=== PATIENT | female | born 1955 | race Caucasian/White ===

== ENCOUNTER 2017-11-25 17:05 | Inpatient (IN) | payer OTHER ==
[~2017-11-25] VITALS: Ht 160 cm; Wt 61.0 kg
[~2017-11-25 17:05] MED LIST: 1-ME1LIQ PO; ADVAI250I PO; DULO20 PO; DUONI NEB; GUAI600 PO; LACT PO; LEVA750T PO; LORTA5 PO; PRED5PAK PO; PROT40TA PO; ROBIACUDC PO; SPIRCAP INH; TRAZ150T2 PO
[2017-11-25 17:30] VITALS: BP 105/58; PULSE 92; RESP 22; TEMP 98.9; O2SAT 89
--- NOTE | 2017-11-25 18:30 | RADRPT ---
EXAM DATE/TIME: 11/25/2017 18:13 [place] COMPARISON: CHEST PA & LAT, February 17, 2016, 8:06. INDICATIONS : Chest pain and short of breath. MEDICAL HISTORY : Hypertension. Chronic obstructive pulmonary disease. SURGICAL HISTORY : None. ENCOUNTER: Initial ACUITY: 1 day PAIN SCORE: 8/10 LOCATION: Bilateral chest FINDINGS: There is consolidation in the left lower lung causing loss of delineation of the left hemidiaphragm a nd with air bronchograms. Chronic interstitial prominence in the right mid and lower lung is less pr ominent than on prior chest x-ray. The upper lungs are clear. The heart is normal in size. Calcifi ed left breast implant. CONCLUSION: Left lower lobe consolidation. Robby Moreno MD on November 25, 2017 at 18:27 Board Certified Radiologist. This report was verified electronically.
[2017-11-25 18:34] VITALS: BP 126/56; PULSE 88; RESP 18; TEMP 98.7; O2SAT 95
[2017-11-25] MEDS ORDERED: ALBU1TAB2 PO (18:39)
[2017-11-25] MEDS ORDERED: TRAZ1TAB14 PO (18:39)
[2017-11-25] MEDS ORDERED: DULO20 PO (18:39)
[2017-11-25] MEDS ORDERED: SPIRCAP INH (18:39)
--- NOTE | 2017-11-25 18:50 | PD ---
HPI Chief Complaint: Respiratory Distress Time Seen by Provider: 18:48 Travel History International Travel<30 days: No Contact w/Intl Traveler<30days: No Traveled to known affect area: No History of Present Illness HPI Patient is a 62-year-old female presents emergency department for evaluation of "I think I have a pneumonia" patient was here February 15, 2016 for sepsis and her right-sided pneumonia. She states feels very similar to that episode. She has been coughing congestion with swallowing her own phlegm for the past 2-3 days. She endorses some mild shortness of breath. She has a history of COPD and has a lung doctor in [place] where she lives the summer months. She denies any chest pain denies any fevers but states just feeling run down. States symptoms for the past 2-3 days, gradually worsening, context as above, associated signs and symptoms as above. PFSH Past Medical History Arthritis: No Asthma: No Anxiety: Yes Heart Rhythm Problems: No Cancer: No Cardiovascular Problems: Yes High Cholesterol: No Chest Pain: No Congestive Heart Failure: No COPD: Yes Endocrine: No Fibromyalgia: Yes Gastrointestinal Disorders: Yes GERD: Yes Genitourinary: No Hiatal Hernia: No Hypertension: Yes Immune Disorder: No Musculoskeletal: Yes Neurologic: No Psychiatric: No Reproductive: No Respiratory: Yes (COPD) Pneumonia: Yes Sleep Apnea: No Ulcer: No Past Surgical History Abdominal Surgery: No Cardiac Surgery: No Ear Surgery: No Endocrine Surgery: No Eye Surgery: No Genitourinary Surgery: No Gynecologic Surgery: Yes (hysterectomy) Hysterectomy: Yes Oral Surgery: Yes (tonsils) Thoracic Surgery: No Tonsillectomy: Yes Other Surgery: Yes (hysterectomy, tonsils, carp jacoby) Social History Alcohol Use: Yes (occ) Tobacco Use: Yes (occ) Substance Use: No Allergies-Medications (Allergen,Severity, Reaction): Coded Allergies: No Known Allergies (Unverified Adverse Reaction, Unknown, 11/25/17) Reported Meds & Prescriptions Reported Meds & Active Scripts Active Reported Albuterol (Albuterol Sulfate) 4 Mg Tab 4 Mg PO QID PRN Spiriva Handihaler (Tiotropium Inh) 18 Mcg Cap 18 Mcg INH DAILY 1 capsule = 18 mcg Trazodone (Trazodone HCl) 150 Mg Tablet 75 Mg PO HS Cymbalta DR (Duloxetine HCl) 20 Mg Capdr 20 Mg PO DAILY Review of Systems Except as stated in HPI: all other systems reviewed are Neg Physical Exam Narrative GENERAL: Well-developed well-nourished no obvious distress SKIN: Focused skin assessment warm/dry. HEAD: Atraumatic. Normocephalic. EYES: Pupils equal and round. No scleral icterus. No injection or drainage. ENT: No nasal bleeding or discharge. Mucous membranes pink and moist. NECK: Trachea midline. No JVD. CARDIOVASCULAR: Regular rate and rhythm. No murmur appreciated. RESPIRATORY: No accessory muscle use. Mildly tachypneic. Clear to auscultation. Breath sounds equal bilaterally. GASTROINTESTINAL: Abdomen soft, non-tender, nondistended. Hepatic and splenic margins not palpable. MUSCULOSKELETAL: No obvious deformities. No clubbing. No cyanosis. No edema. NEUROLOGICAL: Awake and alert. No obvious cranial nerve deficits. Motor grossly within normal limits. Normal speech. PSYCHIATRIC: Appropriate mood and affect; insight and judgment normal. Data Data Last Documented VS Vital Signs Date Time Temp Pulse Resp B/P (MAP) Pulse Ox O2 Delivery O2 Flow Rate FiO2 11/25/17 19:00 88 16 110/64 (79) 94 Nasal Cannula 2.00 11/25/17 18:34 98.7 Orders Orders Complete Blood Count With Diff (11/25/17 17:33) Comprehensive Metabolic Panel (11/25/17 17:33) B-Type Natriuretic Peptide (11/25/17 17:33) Act Partial Throm Time (Ptt) (11/25/17 17:33) Prothrombin Time / Inr (Pt) (11/25/17 17:33) Magnesium (Mg) (11/25/17 17:33) Ckmb (Isoenzyme) Profile (11/25/17 17:33) Troponin I (11/25/17 17:33) Electrocardiogram (11/25/17 17:33) Chest, Pa & Lat (11/25/17 17:33) Blood Culture (11/25/17 18:48) Lactic Acid (11/25/17 18:48) Ceftriaxone Inj (Rocephin Inj) (11/25/17 19:00) Azithromycin Inj (Zithromax Inj) (11/25/17 19:00) Albuterol-Ipratropium Neb (Duoneb Neb) (11/25/17 19:30) Labs Laboratory Tests Test 11/25/17 19:00 White Blood Count 15.7 TH/MM3 Red Blood Count 4.41 MIL/MM3 Hemoglobin 14.2 GM/DL Hematocrit 40.1 % Mean Corpuscular Volume 91.0 FL Mean Corpuscular Hemoglobin 32.2 PG Mean Corpuscular Hemoglobin Concent 35.3 % Red Cell Distribution Width 13.4 % Platelet Count 257 TH/MM3 Mean Platelet Volume 8.7 FL Neutrophils (%) (Auto) 91.7 % Lymphocytes (%) (Auto) 5.4 % Monocytes (%) (Auto) 2.8 % Eosinophils (%) (Auto) 0.0 % Basophils (%) (Auto) 0.1 % Neutrophils # (Auto) 14.4 TH/MM3 Lymphocytes # (Auto) 0.9 TH/MM3 Monocytes # (Auto) 0.4 TH/MM3 Eosinophils # (Auto) 0.0 TH/MM3 Basophils # (Auto) 0.0 TH/MM3 CBC Comment DIFF FINAL Differential Comment MDM Medical Decision Making Medical Screen Exam Complete: Yes Emergency Medical Condition: Yes Differential Diagnosis Pneumonia, Sirs, sepsis, influenza, hypoxic respiratory failure. Narrative Course Patient room to the emergency department, she was found to have a small pneumonia in the left lower lobe. Waiting for blood work the patient was signed out to Dr. Enriquez at 1900 to follow-up labs and disposition the patient properly, she was ordered dose of Rocephin and azithromycin Phi Marley MD Nov 25, 2017 18:50
[2017-11-25 19:00] VITALS: BP 110/64; PULSE 88; RESP 16; O2SAT 94
[2017-11-25] MEDS ORDERED: AZITHROMYCIN INJ 500 MG in SODIUM CHLOR 0.9% 250 ML INJ 250 ML IV ONE (19:00)
[2017-11-25] MEDS ORDERED: cefTRIAXone INJ 1,000 MG in SODIUM CHLORIDE 0.9% INJ 100 ML IV ONE (19:00)
[2017-11-25 19:29] LABS: AUTOMATED NEUTROPHIL # 14.4 TH/MM3 (1.8-7.7); BASOPHIL % 0.1 % (0.0-2.0); HEMATOCRIT 40.1 % (35.0-46.0); HEMOGLOBIN 14.2 GM/DL (11.6-15.3); LYMPH % 5.4 % (9.0-44.0); LYMPHOCYTE # 0.9 TH/MM3 (1.0-4.8); MEAN CORPUSCULAR HEMOGLOBIN 32.2 PG (27.0-34.0); MEAN CORPUSCULAR HGB CONC 35.3 % (32.0-36.0); MEAN PLATELET VOLUME 8.7 FL (7.0-11.0); MONO % 2.8 % (0.0-8.0); MONOCYTE # 0.4 TH/MM3 (0-0.9); NEUT % 91.7 % (16.0-70.0); PLATELET COUNT 257 TH/MM3 (150-450); RED BLOOD COUNT 4.41 MIL/MM3 (4.00-5.30); RED CELL DISTRIBUTION WIDTH 13.4 % (11.6-17.2); WHITE BLOOD COUNT 15.7 TH/MM3 (4.0-11.0)
[2017-11-25] MEDS ORDERED: RESP: ALBUTEROL 2.5 MG/IPRATROPIUM 0.5 MG NEB (SCH) NEB ONE ×2 (19:30→20:45)
[2017-11-25 19:41] LABS: PROTHROMBIN TIME - PATIENT 10.2 SEC (9.8-11.6)
--- NOTE | 2017-11-25 19:56 | PD ---
Physical Exam Date Seen by Provider: Nov 25, 2017 Time Seen by Provider: 19:54 Narrative Accepted in transfer of care from Dr. Marley Data Data Last Documented VS Vital Signs Date Time Temp Pulse Resp B/P (MAP) Pulse Ox O2 Delivery O2 Flow Rate FiO2 11/25/17 19:57 93 Nasal Cannula 2.00 11/25/17 19:00 88 16 110/64 (79) 11/25/17 18:34 98.7 Orders Orders Complete Blood Count With Diff (11/25/17 17:33) Comprehensive Metabolic Panel (11/25/17 17:33) B-Type Natriuretic Peptide (11/25/17 17:33) Act Partial Throm Time (Ptt) (11/25/17 17:33) Prothrombin Time / Inr (Pt) (11/25/17 17:33) Magnesium (Mg) (11/25/17 17:33) Ckmb (Isoenzyme) Profile (11/25/17 17:33) Troponin I (11/25/17 17:33) Electrocardiogram (11/25/17 17:33) Chest, Pa & Lat (11/25/17 17:33) Blood Culture (11/25/17 18:48) Lactic Acid (11/25/17 18:48) Ceftriaxone Inj (Rocephin Inj) (11/25/17 19:00) Azithromycin Inj (Zithromax Inj) (11/25/17 19:00) Albuterol-Ipratropium Neb (Duoneb Neb) (11/25/17 19:30) CKMB (11/25/17 19:00) CKMB% (11/25/17 19:00) Ketorolac Inj (Toradol Inj) (11/25/17 20:45) Albuterol-Ipratropium Neb (Duoneb Neb) (11/25/17 20:45) Sodium Chlorid 0.9% 500 Ml Inj (Ns 500 M (11/25/17 20:45) Admit Order (Ed Use Only) (11/25/17 ) Body Mechanic / Telemetry [id number].[id number] (11/25/17 20:54) Diet Heart Healthy (11/26/17 Breakfast) Activity Bed Rest (11/25/17 20:54) Notify Dr: Other (11/25/17 20:54) Labs Laboratory Tests Test 11/25/17 19:00 White Blood Count 15.7 TH/MM3 Red Blood Count 4.41 MIL/MM3 Hemoglobin 14.2 GM/DL Hematocrit 40.1 % Mean Corpuscular Volume 91.0 FL Mean Corpuscular Hemoglobin 32.2 PG Mean Corpuscular Hemoglobin Concent 35.3 % Red Cell Distribution Width 13.4 % Platelet Count 257 TH/MM3 Mean Platelet Volume 8.7 FL Neutrophils (%) (Auto) 91.7 % Lymphocytes (%) (Auto) 5.4 % Monocytes (%) (Auto) 2.8 % Eosinophils (%) (Auto) 0.0 % Basophils (%) (Auto) 0.1 % Neutrophils # (Auto) 14.4 TH/MM3 Lymphocytes # (Auto) 0.9 TH/MM3 Monocytes # (Auto) 0.4 TH/MM3 Eosinophils # (Auto) 0.0 TH/MM3 Basophils # (Auto) 0.0 TH/MM3 CBC Comment DIFF FINAL Differential Comment Prothrombin Time 10.2 SEC Prothromb Time International Ratio 1.0 RATIO Activated Partial Thromboplast Time 29.3 SEC Blood Urea Nitrogen 26 MG/DL Creatinine 0.94 MG/DL Random Glucose 85 MG/DL Total Protein 6.3 GM/DL Albumin 2.8 GM/DL Calcium Level 8.2 MG/DL Magnesium Level 1.4 MG/DL Alkaline Phosphatase 66 U/L Aspartate Amino Transf (AST/SGOT) 27 U/L Alanine Aminotransferase (ALT/SGPT) 21 U/L Total Bilirubin 0.7 MG/DL Sodium Level 138 MEQ/L Potassium Level 4.2 MEQ/L Chloride Level 105 MEQ/L Carbon Dioxide Level 24.1 MEQ/L Anion Gap 9 MEQ/L Estimat Glomerular Filtration Rate 60 ML/MIN Lactic Acid Level 1.3 mmol/L Total Creatine Kinase 229 U/L Creatine Kinase MB 7.1 NG/ML Creatine Kinase MB % 3.1 % Troponin I LESS THAN 0.02 NG/ML B-Type Natriuretic Peptide 122 PG/ML [facility] Medical Record Reviewed: Yes Supervised Visit with ALICIA: No Interpretation(s) lactic acid: 1.3 Last Impressions Chest X-Ray 11/25/17 2062 Signed Impressions: Service Date/Time: Saturday, November 25, 2017 18:13 - CONCLUSION: Left lower lobe consolidation. Robby Moreno MD Vital Signs Date Time Temp Pulse Resp B/P (MAP) Pulse Ox O2 Delivery O2 Flow Rate FiO2 11/25/17 19:00 88 16 110/64 (79) 94 Nasal Cannula 2.00 11/25/17 18:34 98.7 88 18 126/56 (79) 95 Nasal Cannula 2.00 11/25/17 17:30 98.9 92 22 105/58 (74) 89 Differential Diagnosis Accepted in transfer of care from Dr. Marley; please refer to his dictation Narrative Course Accepted in transfer of care from Dr. Marley; follow up labs --admit for pneumonia , hypoxemia; r/o sepsis Ambulatory to bathroom very symptomatic return to exam room O2 saturations 83% on room air placed on supplemental oxygen at rest with supplemental oxygen O2 saturations increased to 94%. Patient meets sepsis based on heart rate white cell count and source of infection. Case discussed with on-call medicine physician for admission Patient given additional DuoNeb updraft and fluid bolus 500 cc normal saline Sepsis Criteria SIRS Criteria (2 or more): Heart rate over 90, WBC > 85766, < 4000 or > 10% bands Sepsis Criteria (SIRS+source): Infect source susp/known (pneumonia) Physician Communication Physician Communication [facility] --admit Diagnosis Primary Impression: Community acquired pneumonia Additional Impressions: COPD exacerbation Sepsis Admitting Information Admitting Physician Requests: Admit Elizabeth Enriquez MD Nov 25, 2017 19:56
[2017-11-25 19:57] VITALS: O2SAT 93
[2017-11-25 20:13] LABS: ALBUMIN 2.8 GM/DL (3.4-5.0); ALT (GPT) 21 U/L (10-53); AST (GOT) 27 U/L (15-37); BICARBONATE 24.1 MEQ/L (21.0-32.0); BLOOD UREA NITROGEN 26 MG/DL (7-18); CALCIUM 8.2 MG/DL (8.5-10.1); CHLORIDE 105 MEQ/L (98-107); CREATININE 0.94 MG/DL (0.50-1.00); GLOMERULAR FILTRATION RATE 60 ML/MIN (>89); GLUCOSE,RANDOM 85 MG/DL (74-106); MAGNESIUM 1.4 MG/DL (1.5-2.5); SODIUM (NA) 138 MEQ/L (136-145)
[2017-11-25 20:17] LABS: ALKALINE PHOSPHATASE 66 U/L (45-117); TOTAL BILIRUBIN ADULT 0.7 MG/DL (0.2-1.0); TOTAL PROTEIN 6.3 GM/DL (6.4-8.2); TROPONIN I LESS THAN 0.02 NG/ML (0.02-0.05)
[2017-11-25] MEDS ORDERED: SODIUM CHLORID 0.9% 500 ML INJ 500 ML IV ONE ×2 (20:45→21:00)
[2017-11-25] MEDS ORDERED: KETOROLAC TROMETHAMINE 30 MG/ML (IVP) VIAL IV PUSH ONE (20:45)
[2017-11-25 22:30] VITALS: BP 110/64; PULSE 84; RESP 18; O2SAT 95
[2017-11-25 23:59] VITALS: BP 122/79; PULSE 84; RESP 18; TEMP 97.7; O2SAT 91
[2017-11-26] VITALS (13 sets, daily range): BP systolic 102–161; BP diastolic 55–70; PULSE 80–96; RESP 17–20; TEMP 97.2–98.7; O2SAT 92–96
[2017-11-26] MEDS ORDERED: SODIUM CHLORIDE 0.9% FLUSH 10 ML FLUSH IV FLUSH PRN
[2017-11-26] MEDS ORDERED: RESP: ALBUTEROL 2.5 MG/IPRATROPIUM 0.5 MG NEB (PRN) INH
[2017-11-26] MEDS ORDERED: RESP: ALBUTEROL 2.5 MG/IPRATROPIUM 0.5 MG NEB (PRN) NEB
[2017-11-26] MEDS ORDERED: MAGNESIUM SULFATE 1 GM PREMIX 100 ML IV ONE
[2017-11-26] MEDS: SODIUM CHLOR 0.9% 1000 ML INJ 1,000 ML IV SCH ×3 (00:43→21:49)
[2017-11-26] MEDS: traZODone HCL 50 MG TAB PO SCH ×2 (00:44→21:48)
[2017-11-26] MEDS: ENOXAPARIN SODIUM 40 MG/0.4 ML SYRINGE SQ SCH (00:44)
[2017-11-26] MEDS: guaiFENesin/DEXTROMETHORPHAN 200 MG/20 MG/10 ML CUP PO PRN ×3 (00:53→21:48)
[2017-11-26] MEDS ORDERED: ENALAPRILAT 2.5 MG/2 ML VIAL IV PUSH PRN (01:00)
[2017-11-26] MEDS: ACETAMINOPHEN 325 MG TAB PO PRN ×2 (01:00→08:38)
--- NOTE | 2017-11-26 01:05 | HHI.HP ---
[facility]Staff Admission Diagnosis pneumonia; copd; sepsis Diagnoses: Travel History International Travel<30 Days: No Contact w/Intl Traveler <30 Da: No Traveled to Known Affected Are: No History of Present Illness CC 2-year-old female with a past medical history significant for COPD on 2 L nasal cannula at night, fibromyalgia, chronic back pain and hypertension presents to the emergency department evaluation of shortness of breath. The patient reports she's had a nonproductive cough 1 week. She endorses subjective fever/chills. She says her shortness of breath acutely worsened last night. She states that she has chest pain which is worse with inspiration. The patient denies any abdominal pain. No nausea/vomiting/ diarrhea. No lateralizing signs/symptoms. Review of Systems Except as stated in HPI: all other systems reviewed are Neg Past Family Social History Past Medical History COPD Fibromyalgia Chronic back pain Hypertension Past Surgical History Tonsillectomy Right carpal tunnel release Hysterectomy Reported Medications Reported Meds & Active Scripts Active Reported Albuterol (Albuterol Sulfate) 4 Mg Tab 4 Mg PO QID PRN Spiriva Handihaler (Tiotropium Inh) 18 Mcg Cap 18 Mcg INH DAILY 1 capsule = 18 mcg Trazodone (Trazodone HCl) 150 Mg Tablet 75 Mg PO HS Cymbalta DR (Duloxetine HCl) 20 Mg Capdr 20 Mg PO DAILY Allergies: Coded Allergies: No Known Allergies (Unverified Adverse Reaction, Unknown, 11/25/17) Family History Negative for CAD/DM Social History Smokes approximately 1-2 cigarettes daily. Rare alcohol. Denies illicit drugs. Physical Exam Vital Signs Vital Signs Date Time Temp Pulse Resp B/P (MAP) Pulse Ox O2 Delivery O2 Flow Rate FiO2 11/26/17 00:00 Nasal Cannula 4.00 11/25/17 23:59 97.7 84 18 122/79 (93) 91 11/25/17 23:53 11/25/17 22:30 84 18 110/64 (79) 95 Nasal Cannula 2.00 11/25/17 19:57 93 Nasal Cannula 2.00 11/25/17 19:00 88 16 110/64 (79) 94 Nasal Cannula 2.00 11/25/17 18:34 98.7 88 18 126/56 (79) 95 Nasal Cannula 2.00 11/25/17 17:30 98.9 92 22 105/58 (74) 89 Physical Exam GENERAL: female lying in bed SKIN: No rashes, ecchymoses or lesions. Cool and dry. HEAD: Atraumatic. Normocephalic. No temporal or scalp tenderness. EYES: Pupils equal round and reactive. Extraocular motions intact. No scleral icterus. No injection or drainage. ENT: Nose without bleeding, purulent drainage or septal hematoma. Throat without erythema, tonsillar hypertrophy or exudate. Uvula midline. Airway patent. NECK: Trachea midline. No JVD or lymphadenopathy. Supple, nontender, no meningeal signs. CARDIOVASCULAR: Regular rate and rhythm without murmurs, gallops, or rubs. RESPIRATORY: Decreased air movement. No wheezes/rales/rhonchi. GASTROINTESTINAL: Abdomen soft, non-tender, nondistended. No hepato-splenomegaly , or palpable masses. No guarding. MUSCULOSKELETAL: Extremities without clubbing, cyanosis, or edema. No joint tenderness, effusion, or edema noted. No calf tenderness. NEUROLOGICAL: Awake and alert. Cranial nerves II through XII intact. Motor and sensory grossly within normal limits. Normal speech. Laboratory Laboratory Tests Test 11/25/17 19:00 White Blood Count 15.7 Red Blood Count 4.41 Hemoglobin 14.2 Hematocrit 40.1 Mean Corpuscular Volume 91.0 Mean Corpuscular Hemoglobin 32.2 Mean Corpuscular Hemoglobin Concent 35.3 Red Cell Distribution Width 13.4 Platelet Count 257 Mean Platelet Volume 8.7 Neutrophils (%) (Auto) 91.7 Lymphocytes (%) (Auto) 5.4 Monocytes (%) (Auto) 2.8 Eosinophils (%) (Auto) 0.0 Basophils (%) (Auto) 0.1 Neutrophils # (Auto) 14.4 Lymphocytes # (Auto) 0.9 Monocytes # (Auto) 0.4 Eosinophils # (Auto) 0.0 Basophils # (Auto) 0.0 CBC Comment DIFF FINAL Differential Comment Prothrombin Time 10.2 Prothromb Time International Ratio 1.0 Activated Partial Thromboplast Time 29.3 Blood Urea Nitrogen 26 Creatinine 0.94 Random Glucose 85 Total Protein 6.3 Albumin 2.8 Calcium Level 8.2 Magnesium Level 1.4 Alkaline Phosphatase 66 Aspartate Amino Transf (AST/SGOT) 27 Alanine Aminotransferase (ALT/SGPT) 21 Total Bilirubin 0.7 Sodium Level 138 Potassium Level 4.2 Chloride Level 105 Carbon Dioxide Level 24.1 Anion Gap 9 Estimat Glomerular Filtration Rate 60 Lactic Acid Level 1.3 Total Creatine Kinase 229 Creatine Kinase MB 7.1 Creatine Kinase MB % 3.1 Troponin I LESS THAN 0.02 B-Type Natriuretic Peptide 122 Date/Time Source Procedure Growth Status 11/25/17 19:00 Blood Peripheral Aerobic Blood Culture Pending Received 11/25/17 19:00 Blood Peripheral Anaerobic Blood Culture Pending Received Result Diagram: 11/25/17 19011/25/17 190 Caprinnancy VTE Risk Assessment Horacio VTE Risk Assessment: Mod/High Risk (score >= 2) Kodyrini Risk Assessment Model Point Value = 1 Point Value = 2 Point Value = 3 Point Value = 5 Age 41-60 Minor surgery BMI > 25 kg/m2 Swollen legs Varicose veins or History of unexplained or recurrent spontaneous Oral contraceptives or hormone replacement Sepsis (< 1 month) Serious lung disease, including pneumonia (< 1 month) Abnormal pulmonary function Acute myocardial infarction Congestive heart failure (< 1 month) History of inflammatory bowel disease Medical patient at bed rest Age 61-74 Arthroscopic surgery Major open surgery (> 45 min) Laparoscopic surgery (> 45 min) Malignancy Confined to bed (> 72 hours) Immobilizing plaster cast Central venous access Age >= 75 History of VTE Family history of VTE Factor V Leiden Prothrombin [id number] Lupus anticoagulant Anticardiolipin antibodies Elevated serum homocysteine Heparin-induced thrombocytopenia Other congenital or acquired thrombophilia Stroke (< 1 month) Elective arthroplasty Hip, pelvis, or leg fracture Acute spinal cord injury (< 1 month) Prophylaxis Regimen Total Risk Factor Score Risk Level Prophylaxis Regimen 0-1 Low Early ambulation 2 Moderate Order ONE of the following: *Sequential Compression Device (SCD) *Heparin 5000 units SQ BID 3-4 Higher Order ONE of the following medications: *Heparin 5000 units SQ TID *Enoxaparin/Lovenox 40 mg SQ daily (WT < 150 kg, CrCl > 30 mL/min) *Enoxaparin/Lovenox 30 mg SQ daily (WT < 150 kg, CrCl > 10-29 mL/min) *Enoxaparin/Lovenox 30 mg SQ BID (WT < 150 kg, CrCl > 30 mL/min) AND/OR *Sequential Compression Device (SCD) 5 or more Highest Order ONE of the following medications: *Heparin 5000 units SQ TID (Preferred with Epidurals) *Enoxaparin/Lovenox 40 mg SQ daily (WT < 150 kg, CrCl > 30 mL/min) *Enoxaparin/Lovenox 30 mg SQ daily (WT < 150 kg, CrCl > 10-29 mL/min) *Enoxaparin/Lovenox 30 mg SQ BID (WT < 150 kg, CrCl > 30 mL/min) AND *Sequential Compression Device (SCD) Assessment and Plan Assessment and Plan Assessment/plan: 1. Pneumonia/sepsis Patient meets sepsis criteria with tachycardia and leukocytosis Hypoxic on room air Supplemental oxygen as needed Chest x-ray significant for left lower lobe consolidation, personally reviewed Azithromycin/Rocephin Duo nebs 2. COPD Continue Spiriva Plan as above 3. Hypertension Patient not on any home antihypertensives Vasotec prn 4. Fibromyalgia Continue home Cymbalta FEN Heart healthy diet Electrolytes: Monitor and replete prn Heparin Physician Certification 2 Midnight Certification Type: Admission for Inpatient Services Order for Inpatient Services The services are ordered in accordance with Medicare regulations or non- Medicare payer requirements, as applicable. In the case of services not specified as inpatient-only, they are appropriately provided as inpatient services in accordance with the 2-midnight benchmark. Estimated LOS (days): 2 2 days is the estimated time the patient will need to remain in the hospital, assuming treatment plan goals are met and no additional complications. Post-Hospital Plan: Not yet determined Melvi Juarez MD Nov 26, 2017 01:05
[2017-11-26] MEDS: RESP: ALBUTEROL 2.5 MG/IPRATROPIUM 0.5 MG NEB (SCH) INH ×4 (04:53→21:36)
[2017-11-26 07:21] LABS: AUTOMATED NEUTROPHIL # 14.8 TH/MM3 (1.8-7.7); BASOPHIL % 0.2 % (0.0-2.0); EOSINOPHIL % 0.3 % (0.0-4.0); HEMATOCRIT 38.4 % (35.0-46.0); HEMOGLOBIN 13.2 GM/DL (11.6-15.3); LYMPH % 6.1 % (9.0-44.0); MEAN CELL VOLUME 91.9 FL (80.0-100.0); MEAN CORPUSCULAR HEMOGLOBIN 31.6 PG (27.0-34.0); MEAN CORPUSCULAR HGB CONC 34.4 % (32.0-36.0); MEAN PLATELET VOLUME 8.6 FL (7.0-11.0); MONO % 2.5 % (0.0-8.0); MONOCYTE # 0.4 TH/MM3 (0-0.9); NEUT % 90.9 % (16.0-70.0); PLATELET COUNT 237 TH/MM3 (150-450); RED BLOOD COUNT 4.18 MIL/MM3 (4.00-5.30); RED CELL DISTRIBUTION WIDTH 13.6 % (11.6-17.2); WHITE BLOOD COUNT 16.3 TH/MM3 (4.0-11.0)
[2017-11-26 07:48] LABS: BICARBONATE 24.1 MEQ/L (21.0-32.0); CREATININE 0.67 MG/DL (0.50-1.00)
[2017-11-26] MEDS: SODIUM CHLORIDE 0.9% FLUSH 10 ML FLUSH IV FLUSH SCH ×2 (08:39→21:00)
[2017-11-26] MEDS: TIOTROPIUM BROMIDE 18 MCG INH INH SCH (09:00)
[2017-11-26] MEDS ORDERED: HEPARIN SODIUM - SQ 10,000 UNITS/ML VIAL SQ SCH (09:00)
--- NOTE | 2017-11-26 14:56 | HHI.PR ---
Subjective Remarks revent fever and chils with cough productive of thick yellowish sputum history of COPD and fibromyalgia and GERD on 02 NC at night Objective Vitals Vital Signs Date Time Temp Pulse Resp B/P (MAP) Pulse Ox O2 Delivery O2 Flow Rate FiO2 11/26/17 10:18 96 Nasal Cannula 2.00 11/26/17 10:11 89 11/26/17 09:59 20 11/26/17 08:54 95 Nasal Cannula 3.00 11/26/17 04:59 94 Nasal Cannula 2.00 11/26/17 04:00 Nasal Cannula 3.00 11/26/17 04:00 98.7 86 17 134/63 (86) 94 11/26/17 04:00 83 11/26/17 00:44 87 11/26/17 00:00 Nasal Cannula 4.00 11/25/17 23:59 97.7 84 18 122/79 (93) 91 11/25/17 23:53 11/25/17 22:30 84 18 110/64 (79) 95 Nasal Cannula 2.00 11/25/17 19:57 93 Nasal Cannula 2.00 11/25/17 19:00 88 16 110/64 (79) 94 Nasal Cannula 2.00 11/25/17 18:34 98.7 88 18 126/56 (79) 95 Nasal Cannula 2.00 11/25/17 17:30 98.9 92 22 105/58 (74) 89 I/O 11/25/17 11/25/17 11/25/17 11/26/17 11/26/17 11/26/17 07:00 15:00 23:00 07:00 15:00 23:00 Intake Total 850 ml 1350 ml 1000 ml Output Total 0 ml Balance 850 ml 1350 ml 1000 ml Intake Oral 240 ml IV Total 850 ml 1110 ml 1000 ml Output Urine Total 0 ml # Voids 1 # Bowel Movements 1 Result Diagram: 11/26/17 0632 11/26/17 0632 Imaging Last Impressions Chest X-Ray 11/25/17 1290 Signed Impressions: Service Date/Time: Saturday, November 25, 2017 18:13 - CONCLUSION: Left lower lobe consolidation. Robby Moreno MD Objective Remarks awake and alert, NC no throat exudates no nuchal rigidity lungs- + rhonchi, bilateral rales L > R regular rhythm abdomen soft, nontender extremities no edema A/P Assessment and Plan 62 years old 1. Pneumonia/sepsis Patient meets sepsis criteria with tachycardia and leukocytosis Hypoxic on room air Supplemental oxygen as needed Chest x-ray significant for left lower lobe consolidation, personally reviewed Azithromycin/Rocephin Duo nebs send sputum for gram stain 2. COPD Continue Spiriva/Advair Plan as above start short course po steroids duonebs 02 NC 3. Hypertension Patient not on any home antihypertensives Vasotec prn 4. Fibromyalgia Continue home Cymbalta requesting for some pain meds prn 5. History of GERD - PPI FEN Heart healthy diet Electrolytes: Monitor and replete prn Heparin Adalberto Hester MD Nov 26, 2017 14:56
[2017-11-26] MEDS: PANTOPRAZOLE SOD 40 MG DELAYED RELEASE TAB PO SCH (15:52)
--- NOTE | 2017-11-26 16:40 | EKG ---
Date Performed: 11/25/2017 Time Performed: 18:59:50 PTAGE: 62 years EKG: Sinus rhythm BORDERLINE LEFT AXIS DEVIATION Since previous tracing, no significant change noted BORDERLINE ECG PREVIOUS TRACING : 02/15/2016 15.12 DOCTOR: Maximiliano Chavez Interpretating Date/Time 11/26/2017 16:38:29
[2017-11-26] MEDS: cefTRIAXone INJ 1,000 MG in SODIUM CHLORIDE 0.9% INJ 100 ML IV SCH (18:48)
[2017-11-26] MEDS: traMADol/ACETAMINOPHEN 37.5/325 1 TAB PO PRN (19:53)
[2017-11-26] MEDS: AZITHROMYCIN INJ 500 MG in SODIUM CHLOR 0.9% 250 ML INJ 250 ML IV SCH (21:48)
[2017-11-26] MEDS: predniSONE 20 MG TAB PO SCH (21:49)
[2017-11-27] VITALS (11 sets, daily range): BP systolic 118–167; BP diastolic 59–93; PULSE 71–111; RESP 18–22; TEMP 97–98.8; O2SAT 92–96
[2017-11-27] MEDS: ENOXAPARIN SODIUM 40 MG/0.4 ML SYRINGE SQ SCH ×2 (00:37→23:18)
[2017-11-27] MEDS: guaiFENesin/DEXTROMETHORPHAN 200 MG/20 MG/10 ML CUP PO PRN ×4 (03:26→20:38)
[2017-11-27] MEDS: traMADol/ACETAMINOPHEN 37.5/325 1 TAB PO PRN ×4 (03:26→23:18)
[2017-11-27] MEDS: RESP: ALBUTEROL 2.5 MG/IPRATROPIUM 0.5 MG NEB (SCH) INH ×4 (03:42→20:50)
[2017-11-27] MEDS: SODIUM CHLORIDE 0.9% FLUSH 10 ML FLUSH IV FLUSH SCH ×2 (07:46→20:39)
[2017-11-27] MEDS: predniSONE 20 MG TAB PO SCH ×2 (08:39→20:37)
[2017-11-27] MEDS: SODIUM CHLOR 0.9% 1000 ML INJ 1,000 ML IV SCH (08:39)
[2017-11-27] MEDS: PANTOPRAZOLE SOD 40 MG DELAYED RELEASE TAB PO SCH (08:39)
[2017-11-27] MEDS: DULoxetine HCl DR 20 MG CAP PO SCH (08:39)
--- NOTE | 2017-11-27 13:48 | HHI.PR ---
Subjective Remarks afebrile-coughing, sputum less feels easily short of breath when walking Objective Vitals Vital Signs Date Time Temp Pulse Resp B/P (MAP) Pulse Ox O2 Delivery O2 Flow Rate FiO2 11/27/17 12:00 97.5 93 18 167/93 (117) 93 11/27/17 08:00 98.3 88 20 163/76 (105) 96 11/27/17 08:00 94 Nasal Cannula 2.00 11/27/17 08:00 Nasal Cannula 3.00 11/27/17 04:00 97.0 99 20 134/63 (86) 93 11/27/17 04:00 Nasal Cannula 3.00 11/27/17 04:00 111 11/27/17 00:00 98.8 103 22 129/59 (82) 11/27/17 00:00 Nasal Cannula 3.00 11/27/17 00:00 101 11/26/17 21:38 92 Nasal Cannula 2.00 11/26/17 20:00 96 11/26/17 20:00 Nasal Cannula 3.00 11/26/17 19:28 98.4 94 18 130/62 (84) 94 11/26/17 16:42 80 11/26/17 16:00 98.4 85 20 114/55 (74) 93 11/26/17 16:00 98.4 85 20 114/55 (74) I/O 11/26/17 11/26/17 11/26/17 11/27/17 11/27/17 11/27/17 07:00 15:00 23:00 07:00 15:00 23:00 Intake Total 1350 ml 1000 ml 1830 ml 795 ml Output Total 0 ml Balance 1350 ml 1000 ml 1830 ml 795 ml Intake Oral 240 ml 480 ml 240 ml IV Total 1110 ml 1000 ml 1350 ml 555 ml Output Urine Total 0 ml # Voids 1 4 3 # Bowel Movements 1 5 Result Diagram: 11/26/17 0632 11/26/17 0632 Imaging Last Impressions Chest X-Ray 11/25/17 1736 Signed Impressions: Service Date/Time: Saturday, November 25, 2017 18:13 - CONCLUSION: Left lower lobe consolidation. Robby Moreno MD Objective Remarks awake and alert, 02 NC no throat exudates no nuchal rigidity lungs- no rales, no wheezes, + rales left more than right regular rhythm abdomen soft, nontender extremities no edema A/P Assessment and Plan 62 years old 1. Pneumonia/sepsis Patient meets sepsis criteria with tachycardia and leukocytosis Hypoxic on room air Supplemental oxygen as needed Chest x-ray significant for left lower lobe consolidation, personally reviewed Azithromycin/Rocephin Duo nebs send sputum for gram stain 2. COPD exacerbation - on home 02 at night Continue Spiriva/Advair Plan as above started on steroids - 11/25 duonebs schedule 02 NC- d/w them that may need to use it 24 hours- counselled on smoking cessation 3. Hypertension Patient not on any home antihypertensives Vasotec prn 4. Fibromyalgia Continue home Cymbalta requesting for some pain meds prn 5. History of GERD - PPI FEN Heart healthy diet Electrolytes: Monitor and replete prn Lovenox for DVT prophylaxis out of bed bid DC planning- from [place]- planning to fly back when DC from here Adalberto Hester MD Nov 27, 2017 13:48
[2017-11-27] MEDS: TIOTROPIUM BROMIDE 18 MCG INH INH SCH (15:40)
[2017-11-27] MEDS: AZITHROMYCIN INJ 500 MG in SODIUM CHLOR 0.9% 250 ML INJ 250 ML IV SCH (19:42)
[2017-11-27] MEDS: cefTRIAXone INJ 1,000 MG in SODIUM CHLORIDE 0.9% INJ 100 ML IV SCH (19:42)
[2017-11-27] MEDS: traZODone HCL 50 MG TAB PO SCH (20:39)
[2017-11-28] VITALS (8 sets, daily range): BP systolic 125–183; BP diastolic 59–88; PULSE 65–94; RESP 18–21; TEMP 97.8–98.8; O2SAT 91–94
[2017-11-28] MEDS: RESP: ALBUTEROL 2.5 MG/IPRATROPIUM 0.5 MG NEB (SCH) INH ×3 (03:48→16:29)
[2017-11-28] MEDS: TIOTROPIUM BROMIDE 18 MCG INH INH SCH (09:00)
[2017-11-28] MEDS: SODIUM CHLORIDE 0.9% FLUSH 10 ML FLUSH IV FLUSH SCH ×2 (09:00→20:46)
[2017-11-28] MEDS: PANTOPRAZOLE SOD 40 MG DELAYED RELEASE TAB PO SCH (09:44)
[2017-11-28] MEDS: DULoxetine HCl DR 20 MG CAP PO SCH (09:44)
[2017-11-28] MEDS: predniSONE 20 MG TAB PO SCH ×2 (09:44→20:46)
[2017-11-28] MEDS: guaiFENesin/DEXTROMETHORPHAN 200 MG/20 MG/10 ML CUP PO PRN ×2 (12:07→20:46)
[2017-11-28] MEDS: traMADol/ACETAMINOPHEN 37.5/325 1 TAB PO PRN ×2 (12:08→20:46)
--- NOTE | 2017-11-28 15:08 | HHI.PR ---
Subjective Remarks Follow up for COPD, Pneumonia. Patient is currently doing well on 2L of O2 via NC. No fever, chills. However, she reports dyspnea on mild exertion such as short walk in the room. She uses 2L of O2 via NC at night at home. She is from [place] and plans to go back within next week. Objective Vitals Vital Signs Date Time Temp Pulse Resp B/P (MAP) Pulse Ox O2 Delivery O2 Flow Rate FiO2 11/28/17 12:19 97.8 85 18 183/88 (119) 92 11/28/17 10:15 94 Nasal Cannula 3.00 11/28/17 09:15 98.7 78 20 131/60 (83) 94 11/28/17 08:59 94 Nasal Cannula 2.00 11/28/17 04:00 84 11/28/17 04:00 98.5 77 18 129/64 (85) 94 11/28/17 04:00 Nasal Cannula 3.00 11/28/17 00:00 98.5 85 18 125/59 (81) 93 11/28/17 00:00 89 11/28/17 00:00 Nasal Cannula 3.00 11/27/17 20:52 94 Nasal Cannula 2.00 11/27/17 20:10 83 11/27/17 19:30 97.8 78 18 135/70 (91) 92 11/27/17 16:30 98.5 82 18 118/60 (79) 11/27/17 16:00 Nasal Cannula 3.00 11/27/17 15:53 71 I/O 11/27/17 11/27/17 11/27/17 11/28/17 11/28/17 11/28/17 07:00 15:00 23:00 07:00 15:00 23:00 Intake Total 795 ml 1220 ml 680 ml Balance 795 ml 1220 ml 680 ml Intake Oral 240 ml 1220 ml 680 ml IV Total 555 ml # Voids 3 5 4 # Bowel Movements 3 Result Diagram: 11/26/17 0632 11/26/17 0632 Imaging Last Impressions Chest X-Ray 11/25/17 6814 Signed Impressions: Service Date/Time: Saturday, November 25, 2017 18:13 - CONCLUSION: Left lower lobe consolidation. Robby Moreno MD Objective Remarks GENERAL: Alert, oriented x 3, NAD. Speaking in full sentences. SKIN: Warm and dry. HEAD: Normocephalic. EYES: No scleral icterus. No injection or drainage. NECK: Supple, trachea midline. No JVD or lymphadenopathy. CARDIOVASCULAR: Regular rate and rhythm without murmurs, gallops, or rubs. RESPIRATORY: Moderate air entry, left basilar crackles, no significant wheezes. No accessory muscle use. GASTROINTESTINAL: Abdomen soft, non-tender, nondistended. MUSCULOSKELETAL: No cyanosis, or edema. BACK: Nontender without obvious deformity. No CVA tenderness. Procedures None. A/P Problem List: (1) Sepsis ICD Code: A41.9 - Sepsis, unspecified organism Status: Acute (2) COPD exacerbation ICD Code: J44.1 - Chronic obstructive pulmonary disease with (acute) exacerbation Status: Acute (3) Community acquired pneumonia ICD Code: J18.9 - Pneumonia, unspecified organism Status: Acute (4) Hypertension ICD Code: I10 - Essential (primary) hypertension Status: Acute Assessment and Plan Ms. Louie is a 62 year old female with a history of COPD on night-time O2 at home, chronic back pain who was admitted to the hospital due to worsening shortness of breath, non-productive cough. CXR showed left lower lobe consolidations. Sepsis (HR > 90, RR > 20, WBC 15.7, suspected infection - pneumonia). Community Acquired pneumonia COPD Exacerbation Patient is currently on DuoNeb, Prednisone PO, Ceftriaxone 1g Q24, Azithromycin 500mg Qday. Will switch abx to monotherapy with Levaquin 750mg Qday Patient is currently on scheduled and PRN DuoNeb. Thus, we will hold off using Tiotropium for now We will start Symbicort BID. Hypertension - not any BP meds at home. Vasotec PRN in patient. Fibromyalgia - Continue Cymbalta. Full code. Lovenox. Discharge plan: Anticipate discharge on 11/29 or 11/30/2017. Briana Isabel DO Nov 28, 2017 15:08
[2017-11-28] MEDS ORDERED: LEVOFLOXACIN 750 MG TAB PO SCH (16:15)
[2017-11-28] MEDS: RESP: ALBUTEROL 2.5 MG/IPRATROPIUM 0.5 MG NEB (SCH) NEB (19:40)
[2017-11-28] MEDS: traZODone HCL 50 MG TAB PO SCH (20:46)
[2017-11-28] MEDS: BUDESONIDE-FORMOTEROL 160/4.5 MCG INHALER INH SCH (22:18)
[2017-11-28] MEDS: ENOXAPARIN SODIUM 40 MG/0.4 ML SYRINGE SQ SCH (23:09)
[2017-11-29] VITALS (9 sets, daily range): BP systolic 103–181; BP diastolic 58–88; PULSE 61–99; RESP 18–24; TEMP 98.1–99; O2SAT 91–94
[2017-11-29] MEDS: traMADol/ACETAMINOPHEN 37.5/325 1 TAB PO PRN ×3 (03:49→22:32)
[2017-11-29] MEDS: SODIUM CHLORIDE 0.9% FLUSH 10 ML FLUSH IV FLUSH SCH ×2 (08:00→20:44)
[2017-11-29] MEDS: PANTOPRAZOLE SOD 40 MG DELAYED RELEASE TAB PO SCH (08:42)
[2017-11-29] MEDS: RESP: ALBUTEROL 2.5 MG/IPRATROPIUM 0.5 MG NEB (SCH) NEB ×3 (08:59→20:13)
[2017-11-29] MEDS: predniSONE 20 MG TAB PO SCH ×2 (09:00→20:44)
[2017-11-29] MEDS: BUDESONIDE-FORMOTEROL 160/4.5 MCG INHALER INH SCH ×2 (09:00→20:44)
[2017-11-29] MEDS: LACTOBACILLUS ACIDOPHILUS TAB PO SCH ×2 (13:00→18:06)
[2017-11-29] MEDS: DULoxetine HCl DR 20 MG CAP PO SCH (13:58)
[2017-11-29] MEDS ORDERED: OXYGENDME NAS.CANULA (15:24)
[2017-11-29] MEDS ORDERED: AMOX875T2 PO (15:24)
[2017-11-29] MEDS ORDERED: WALKER/ADULT/FO1 MIS (15:24)
[2017-11-29] MEDS ORDERED: AZIT250T3 PO (15:24)
[2017-11-29] MEDS ORDERED: LACTTAB8 PO (15:25)
[2017-11-29] MEDS: ONDANSETRON HCL 4 MG/2 ML VIAL IV PUSH PRN ×2 (16:25→22:32)
--- NOTE | 2017-11-29 17:57 | HHI.PR ---
Subjective Remarks Camacho this morning has constipation nausea and vomiting. She's having difficulty keeping down liquids and solids today. Nausea is improving through the afternoon but still present. No other complaints. She remains oxygen dependent and is not ambulating well yet. Objective Vital Signs Date Time Temp Pulse Resp B/P (MAP) Pulse Ox O2 Delivery O2 Flow Rate FiO2 11/29/17 16:00 98.7 87 20 126/65 (85) 91 11/29/17 14:52 94 Nasal Cannula 2.00 11/29/17 12:00 98.6 96 22 103/58 (73) 94 11/29/17 09:02 94 Nasal Cannula 2.00 11/29/17 08:00 98.7 61 24 181/88 (119) 94 11/29/17 08:00 66 11/29/17 04:00 74 11/29/17 04:00 98.1 80 20 155/78 (103) 94 11/29/17 03:57 Nasal Cannula 3.00 11/29/17 00:00 98 11/29/17 00:00 98.3 86 18 153/70 (97) 93 11/29/17 00:00 Nasal Cannula 3.00 11/28/17 20:00 91 11/28/17 20:00 Nasal Cannula 3.00 11/28/17 20:00 98.8 94 21 138/61 (86) 93 11/28/17 19:43 92 21 I/O 11/28/17 11/28/17 11/28/17 11/29/17 11/29/17 11/29/17 07:00 15:00 23:00 07:00 15:00 23:00 Intake Total 680 ml Balance 680 ml Intake Oral 680 ml # Voids 4 Result Diagram: 11/26/17 0632 11/26/17 0632 Objective Remarks GENERAL: NAD, A&Ox3 HEAD: Normocephalic. NECK: Supple, trachea midline. No lymphadenopathy. EYES: No scleral icterus. No injection or drainage. CARDIOVASCULAR: Regular rate and rhythm without murmurs, gallops, or rubs. RESPIRATORY: Breath sounds equal bilaterally. No accessory muscle use. GASTROINTESTINAL: Abdomen soft, non-tender, nondistended. MUSCULOSKELETAL: No cyanosis, or edema. SKIN: Warm and dry. NEURO: No focal neurological deficitis. A/P Problem List: (1) Weakness ICD Code: R53.1 - Weakness (2) COPD exacerbation ICD Code: J44.1 - Chronic obstructive pulmonary disease with (acute) exacerbation Status: Acute (3) Hypoxia ICD Code: R09.02 - Hypoxemia Assessment and Plan 62-year-old female admitted secondary to COPD exacerbation in the presence of pneumonia Sepsis Resolved Community-acquired pneumonia COPD exacerbation Continue duo nebs Continue prednisone Stop Levaquin due to nausea and vomiting Transitioned to azithromycin and Augmentin as a treatment Continue oxygen as needed Plan for home oxygen at discharge Continue Symbicort Hypertension Vasotec as needed Fibromyalgia Continue Cymbalta DVT prophylaxis Lovenox Rommel Santizo MD Nov 29, 2017 17:56
[2017-11-29] MEDS: traZODone HCL 50 MG TAB PO SCH (20:43)
[2017-11-29] MEDS: ENOXAPARIN SODIUM 40 MG/0.4 ML SYRINGE SQ SCH (22:32)
[2017-11-30] VITALS: BP 125/61; PULSE 84; RESP 18; TEMP 98.1; O2SAT 96
[2017-11-30 04:00] VITALS: BP 131/70; PULSE 73; RESP 18; TEMP 99.1; O2SAT 95
[2017-11-30 08:00] VITALS: BP 138/65; PULSE 63; RESP 18; TEMP 98.2; O2SAT 93
[2017-11-30] MEDS: RESP: ALBUTEROL 2.5 MG/IPRATROPIUM 0.5 MG NEB (SCH) NEB ×2 (08:34→12:12)
[2017-11-30 08:35] VITALS: O2SAT 93
[2017-11-30] MEDS ORDERED: AZITHROMYCIN 250 MG TAB PO SCH (09:00)
[2017-11-30] MEDS ORDERED: AMOXICILLIN/CLAVULANATE K 875 MG TAB PO SCH (09:00)
[2017-11-30] MEDS: BUDESONIDE-FORMOTEROL 160/4.5 MCG INHALER INH SCH (10:04)
[2017-11-30] MEDS: SODIUM CHLORIDE 0.9% FLUSH 10 ML FLUSH IV FLUSH SCH (10:05)
[2017-11-30] MEDS: PANTOPRAZOLE SOD 40 MG DELAYED RELEASE TAB PO SCH (10:05)
[2017-11-30] MEDS: DULoxetine HCl DR 20 MG CAP PO SCH (10:05)
[2017-11-30] MEDS: predniSONE 20 MG TAB PO SCH (10:05)
[2017-11-30] MEDS: LACTOBACILLUS ACIDOPHILUS TAB PO SCH ×2 (10:05→15:32)
--- NOTE | 2017-11-30 11:47 | HHI.DS ---
Discharge Summary Admission Date Nov 25, 2017 at 20:56 Discharge Date: Nov 30, 2017 Admitting Diagnosis pneumonia; copd; sepsis (1) Sepsis ICD Code: A41.9 - Sepsis, unspecified organism Diagnosis: Principal Status: Acute (2) COPD exacerbation ICD Code: J44.1 - Chronic obstructive pulmonary disease with (acute) exacerbation Diagnosis: Principal Status: Acute (3) Community acquired pneumonia ICD Code: J18.9 - Pneumonia, unspecified organism Diagnosis: Principal Status: Acute (4) Hypertension ICD Code: I10 - Essential (primary) hypertension Diagnosis: Principal Status: Acute Procedures None. Brief History - From Admission [facility] 2-year-old female with a past medical history significant for COPD on 2 L nasal cannula at night, fibromyalgia, chronic back pain and hypertension presents to the emergency department evaluation of shortness of breath. The patient reports she's had a nonproductive cough 1 week. She endorses subjective fever/chills. She says her shortness of breath acutely worsened last night. She states that she has chest pain which is worse with inspiration. The patient denies any abdominal pain. No nausea/vomiting/ diarrhea. No lateralizing signs/symptoms. CBC/BMP: 11/26/17 0632 11/26/17 0632 PE at Discharge GENERAL: Alert, oriented x 3, NAD. Speaking in full sentences. SKIN: Warm and dry. HEAD: Normocephalic. EYES: No scleral icterus. No injection or drainage. NECK: Supple, trachea midline. No JVD or lymphadenopathy. CARDIOVASCULAR: Regular rate and rhythm without murmurs, gallops, or rubs. RESPIRATORY: Moderate air entry, left basilar crackles, no significant wheezes. No accessory muscle use. GASTROINTESTINAL: Abdomen soft, non-tender, nondistended. MUSCULOSKELETAL: No cyanosis, or edema. BACK: Nontender without obvious deformity. No CVA tenderness. Hospital Course Mr. Louie is a 62 year old female. She was admitted secondary to COPD exacerbation related to pneumonia. She has had hypoxia while here. Pneumonia is being treated and she is showing improvement. Her lung functions are improving slowly and she remains oxygen dependent. At time of admission she was very weak and she's been working with physical therapy with gradual improvement. She is now stable for continuation of physical therapy at home and discharged with home oxygen. Medically clear and stable for discharge home today. Pt Condition on Discharge: Stable Discharge Disposition: Disch w/ Home Health Serv Discharge Time: <= 30 minutes Discharge Instructions DIET: Follow Instructions for: As Tolerated, No Restrictions Activities you can perform: Regular-No Restrictions Follow up Referrals: PCP Follow-up - 2 Weeks Pulmonology - 2 Weeks New Medications: Lactobacillus Acidophilus (Lactobacillus Acidophilus) 1 Billion Cell Tab 1 TAB PO TIDAC for Nutritional Supplement, #30 TAB 0 Refills Oxygen (O2) (Oxygen (O2)) Device LITER YAJAIRA.CANULA CONTINUOUS for Prevent Hypoxemia, #2 Oxygen Concentrator Portable Gaseous 2 L/min via Nasal Canula Continuous For 99 months Walker/Adult/Folding (Walker/Adult/Folding) 1 Mis Mis EA .XX DIRECTED, #1 0 Refills Amoxicillin-Clavulanate (Amoxicillin-Clavulanate) 875-125 mg Tab 875 MG PO Q12HR for Infection, #14 TAB not for use in CrCl <30 mL/minute Azithromycin (Azithromycin) 250 Mg Tab 500 MG PO DAILY for Infection, #5 TAB Continued Medications: Albuterol (Albuterol) 4 Mg Tab 4 MG PO QID PRN for SHORTNESS OF BREATH, TAB Duloxetine DR (Cymbalta DR) 20 Mg Capdr 20 MG PO DAILY, #30 CAP 0 Refills Tiotropium Inh (Spiriva Handihaler) 18 Mcg Cap 18 MCG INH DAILY for COPD, #30 CAP 0 Refills 1 capsule = 18 mcg Trazodone (Trazodone) 150 Mg Tablet 75 MG PO HS for Control Depression, #30 TAB 0 Refills Rommel Santizo MD Nov 30, 2017 11:46
[2017-11-30 12:00] VITALS: BP 169/83; PULSE 62; RESP 18; TEMP 98.1; O2SAT 94
[2017-11-30] MEDS ORDERED: PROM25TA10 PO (15:05)
[2017-11-30] MEDS ORDERED: WALKER WHEELS/F1 MIS (15:45)
== END 2017-11-30 17:03 | disposition home or self-care (01) | DRG 871 ==
LOC: NED 17:05 → NEDA 20:56 → N04B 11-26 00:04
PROVIDERS: ADMIT Hospitalist; ATTEND Hospitalist
DX: A41.9 Sepsis, unspecified organism (principal); J18.9 Pneumonia, unspecified organism; Z99.81 Dependence on supplemental oxygen; J44.0 Chronic obstructive pulmonary disease with (acute) lower respiratory infection; J44.1 Chronic obstructive pulmonary disease with (acute) exacerbation; F41.9 Anxiety disorder, unspecified; M79.7 Fibromyalgia; K21.9 Gastro-esophageal reflux disease without esophagitis; I10 Essential (primary) hypertension; F17.210 Nicotine dependence, cigarettes, uncomplicated; R09.02 Hypoxemia; M54.9 Dorsalgia, unspecified; G89.29 Other chronic pain; K59.00 Constipation, unspecified; R11.2 Nausea with vomiting, unspecified
CPT/HCPCS: 71046; 80048; 80053; 82550; 82552; 83605; 83735; 83880; 84484; 85025; 85610; 85730; 87040; 87070; 87205; 93005; 94618; 94640; 94664; 96365; 96367; 96375; J0456; J0696; J1644; J1650; J1885; J2405; J3475; J7030; J7040; J7050; J7512